=== PATIENT | male | born 1955 | race Caucasian/White ===

== ENCOUNTER 2018-04-22 11:06 | Observation (INO) | payer OTHER ==
[~2018-04-22] VITALS: Ht 180.3 cm; Wt 55.3 kg
[2018-04-22 11:30] VITALS: Ht 180.3 cm; Wt 55.3 kg
[2018-04-22 12:14] LABS: BASOPHIL % 0.2 % (0-2); PLATELET COUNT 165 x10^3mcL (130-400)
[2018-04-22 12:16] LABS: RED CELL DISTRIBUTION WIDTH 15.6 % (11.5-14.5)
[2018-04-22 12:50] LABS: ALBUMIN 4.2 g/dL (3.4-5.0); ALKALINE PHOSPHATASE 128 U/L (46-116); ALT/SGPT 40 U/L (16-63); AMYLASE 94 U/L (25-115); AST/SGOT 36 U/L (15-37); BILIRUBIN TOTAL 1.38 mg/dL (0.20-1.00); CARBON DIOXIDE 23.6 mmol/L (21-32); CHLORIDE SERUM 93 mmol/L (98-107); CREATININE SERUM 1.3 mg/dL (0.7-1.3); GFR1 60 mL/min; HDL CHOLESTEROL 59 mg/dL (40-60); POTASSIUM SERUM 5.2 mmol/L (3.5-5.1); SODIUM SERUM 131 mmol/L (136-145); T4(THYROXINE) 8.8 ug/dL (4.7-13.3)
[2018-04-22 12:59] LABS: CALCIUM 10.7 mg/dL (8.5-10.1); CHOLESTEROL 172 mg/dL (<200); GLUCOSE SERUM 119 mg/dL (74-106); LIPASE 477 IU/L (73-393); MAGNESIUM 2.3 mg/dL (1.8-2.4)
[2018-04-22 13:07] LABS: TOTAL PROTEIN, SERUM 9.1 g/dL (6.4-8.2)
[2018-04-22 14:48] LABS: UA SPECIFIC GRAVITY >=1.030 (1.005-1.035); microscopic required? YES; urine erythrocyte NEGATIVE (NEGATIVE)
[2018-04-22 15:06] LABS: AMPHETAMINE QUAL UR NONE DETECTED (See below)
[2018-04-22 16:20] VITALS: BP 99/66
[2018-04-22 17:00] VITALS: BP 94/64
[2018-04-22 20:53] VITALS: BP 90/54
[2018-04-23 05:52] VITALS: BP 91/61
[2018-04-23 07:07] LABS: CALCIUM 8.5 mg/dL (8.5-10.1); CARBON DIOXIDE 24.1 mmol/L (21-32); CHLORIDE SERUM 101 mmol/L (98-107); CREATININE SERUM 0.9 mg/dL (0.7-1.3); GFR1 > 60 mL/min; GLUCOSE SERUM 96 mg/dL (74-106); POTASSIUM SERUM 3.7 mmol/L (3.5-5.1); SODIUM SERUM 134 mmol/L (136-145)
[2018-04-23 07:31] LABS: BASOPHIL % 0.4 % (0-2)
[2018-04-23 07:45] LABS: PLATELET COUNT 123 x10^3mcL (130-400); RED CELL DISTRIBUTION WIDTH 15.2 % (11.5-14.5)
[2018-04-23 08:15] VITALS: BP 92/63
[2018-04-23 11:10] VITALS: BP 92/63
== END 2018-04-23 14:10 | disposition home or self-care (01) | DRG 392 ==
LOC: ED 11:06 → MU 14:45
PROVIDERS: Emergency Medicine; ADMIT Internal Medicine Pulmonary Disease
DX: K52.9 Noninfective gastroenteritis and colitis, unspecified (principal); F10.10 Alcohol abuse, uncomplicated; R25.1 Tremor, unspecified; F17.200 Nicotine dependence, unspecified, uncomplicated; Z87.820 Personal history of traumatic brain injury
CPT/HCPCS: 82962; 99406; G0378; G0480; J2550; J3411; J3475; J3490; J7030; J8597; Q0092